=== PATIENT | female | born 1970 | race Caucasian/White ===

== ENCOUNTER → 2017-05-22 | Outpatient (CLI) | payer BC ==
[2015-05-19 15:51] VITALS: BP 123/84
[~2017-05-22] MED LIST: DOCU-109 PO; LEVO150T5 PO; OXYC-323 PO; PROM25SU32 RC; SIMV20TA PO
--- NOTE | 2017-05-26 08:24 | RAD ---
DATE: 05/25/2017 EXAM: MAMMO SCREENING BILATERAL HISTORY: Routine screening. COMPARISON: Outside mammogram from 10/28/2015 This study was interpreted with the benefit of Computerized Aided Detection (CAD). FINDINGS: Breast Density: HETERO The breast parenchyma Is heterogeneously dense, which could reduce sensitivity of mammography. Breast parenchyma level C. The skin and nipples are within normal limits. Stable round masses are seen in the bilateral breasts. The reimbursement representative mass in the medial aspect of the left breast measures 6 mm. The reimbursement representative mass in the outer aspect of the right breast measures 7 mm. No suspicious calcifications, spiculated masses or areas of architectural distortion. IMPRESSION: Stable bilateral round masses when compared to previous mammogram from 10/28/2015. These are most likely benign. However, 2 year stability should be documented. BI-RADS CATEGORY: 3 PROBABLE BENIGN FINDING(S-SHORT INTERVAL FOLLOW-UP SUGGESTED RECOMMENDED FOLLOW-UP: 6M 6 MONTH FOLLOW-UP. Bilateral mammogram in 6 months recommended. PQRS compliance statement: Patient information was entered into a reminder system with a target due date for the next mammogram. Mammography is a sensitive method for finding small breast cancers, but it does not detect them all and is not a substitute for careful clinical examination. A negative mammogram does not negate a clinically suspicious finding and should not result in delay in biopsying a clinically suspicious abnormality. "Our facility is accredited by the [employer] Mammography Program."
== END | disposition home or self-care (01) ==
LOC: MAMMO 14:33
PROVIDERS: ATTEND Physician Assistant
DX: Z12.31 Encounter for screening mammogram for malignant neoplasm of breast (principal); F17.210 Nicotine dependence, cigarettes, uncomplicated; Z85.038 Personal history of other malignant neoplasm of large intestine
CPT/HCPCS: 77063; 77067